=== PATIENT | male | born 1980 | race Two or more races ===

== ENCOUNTER 2021-08-02 09:35 | Emergency (ER) | payer SELFPAY ==
[~2021-08-02] VITALS: Ht 160 cm; Wt 77.3 kg
[2021-08-02 13:25] VITALS: BP 125/90
== END 2021-08-02 13:26 | disposition home or self-care (01) ==
LOC: EMS 09:35
DX: S43.102A Unspecified dislocation of left acromioclavicular joint, initial encounter (principal); W18.39XA Other fall on same level, initial encounter; Y93.66 Activity, soccer; Y92.89 Other specified places as the place of occurrence of the external cause; Y99.8 Other external cause status
CPT/HCPCS: 99283